=== PATIENT | female | born 1970 | race Caucasian/White ===

== ENCOUNTER → 2021-04-03 13:00 | Outpatient (BNVA) | payer OTHER, SELFPAY | PROVIDERS: PCP Internal Medicine; Visit Provider Nurse Practitioner Family | DX: M53.3 Sacrococcygeal disorders, not elsewhere classified (principal); M47.816 Spondylosis without myelopathy or radiculopathy, lumbar region | CPT/HCPCS: 99202 ==

== ENCOUNTER 2022-05-21 17:43 | Emergency (ER) | payer OTHER, SELFPAY ==
--- NOTE | ~2022-05-21 | XR_ITS ---
EXAMINATION: RIGHT KNEE, AP PELVIS AND RIGHT HIP AND CHEST. CLINICAL INFORMATION: Status post fall with pain to right knee. COMPARISON: None TECHNIQUE: Right knee 4 views. AP pelvis and right hip 2 views. Chest 2 views. FINDINGS: Right knee: There is mild loss of medial and patellofemoral compartment joint space. No visible acute fracture, dislocation or subluxation seen. There is mild superior patellar spurring. No abnormal suprapatellar joint effusion seen. AP pelvis and right hip: There is severe loss of right hip joint space and mild loss of left hip joint space with periarticular spurring. No visible acute fracture or dislocation seen. No lytic or sclerotic process seen. CHEST: The lungs are well-expanded and clear. The heart size and pulmonary vascularity is normal. No gross bony abnormalities seen. XR/XR knee RT 4V IMPRESSION: 1. Mild degenerative changes medial and patellofemoral compartment right knee. No visible acute fracture or dislocation seen. 2. Severe degenerative changes right hip joint with periarticular spurring. No visible acute fracture or dislocation seen. 3. Unremarkable chest exam.
--- NOTE | ~2022-05-21 | XR_ITS ---
EXAMINATION: RIGHT KNEE, AP PELVIS AND RIGHT HIP AND CHEST. CLINICAL INFORMATION: Status post fall with pain to right knee. COMPARISON: None TECHNIQUE: Right knee 4 views. AP pelvis and right hip 2 views. Chest 2 views. FINDINGS: Right knee: There is mild loss of medial and patellofemoral compartment joint space. No visible acute fracture, dislocation or subluxation seen. There is mild superior patellar spurring. No abnormal suprapatellar joint effusion seen. AP pelvis and right hip: There is severe loss of right hip joint space and mild loss of left hip joint space with periarticular spurring. No visible acute fracture or dislocation seen. No lytic or sclerotic process seen. CHEST: The lungs are well-expanded and clear. The heart size and pulmonary vascularity is normal. No gross bony abnormalities seen. XR/XR chest 2V IMPRESSION: 1. Mild degenerative changes medial and patellofemoral compartment right knee. No visible acute fracture or dislocation seen. 2. Severe degenerative changes right hip joint with periarticular spurring. No visible acute fracture or dislocation seen. 3. Unremarkable chest exam.
--- NOTE | ~2022-05-21 | US_ITS ---
EXAMINATION: US VENOUS ULTRASOUND WITH DOPPLER LOWER EXTREMITY, RIGHT CLINICAL INFORMATION: Right leg pain. COMPARISON: None TECHNIQUE: Ultrasound of the deep veins is performed from the hip to the calf with compression sonography and color and pulse Doppler assessment. Spectral analysis with color-flow imaging is performed. FINDINGS: There is normal venous compression and respiratory variation and augmented flow. The visualized common femoral vein, superficial femoral vein, profunda femoral vein, popliteal vein, and the trifurcation region shows no evidence of deep venous thrombosis. There is no significant popliteal fossa cyst. If the patient's symptoms persist, followup ultrasound in 5 days 7 days might be of value to exclude proximal propagation from a non-visualized calf vein. US/US venous duplex LE RT IMPRESSION: No DVT demonstrated in the right lower extremity.
--- NOTE | ~2022-05-21 | XR_ITS ---
EXAMINATION: RIGHT KNEE, AP PELVIS AND RIGHT HIP AND CHEST. CLINICAL INFORMATION: Status post fall with pain to right knee. COMPARISON: None TECHNIQUE: Right knee 4 views. AP pelvis and right hip 2 views. Chest 2 views. FINDINGS: Right knee: There is mild loss of medial and patellofemoral compartment joint space. No visible acute fracture, dislocation or subluxation seen. There is mild superior patellar spurring. No abnormal suprapatellar joint effusion seen. AP pelvis and right hip: There is severe loss of right hip joint space and mild loss of left hip joint space with periarticular spurring. No visible acute fracture or dislocation seen. No lytic or sclerotic process seen. CHEST: The lungs are well-expanded and clear. The heart size and pulmonary vascularity is normal. No gross bony abnormalities seen. XR/XR hip RT w PEL1V IMPRESSION: 1. Mild degenerative changes medial and patellofemoral compartment right knee. No visible acute fracture or dislocation seen. 2. Severe degenerative changes right hip joint with periarticular spurring. No visible acute fracture or dislocation seen. 3. Unremarkable chest exam.
[2022-05-21 17:45] VITALS: BP 121/79; PULSE 114; RESP 18; TEMP 36.1; O2SAT 100; BMI 40.1
--- NOTE | 2022-05-21 17:46 | ED.CHESTPAIN ---
HPI - Chest Pain General Chief Complaint: Chest Pain Stated Complaint: chest pain sob,right knee and hip pain Time Seen by Provider: 05/21/22 19:26 Related Data Home Medications Medication Instructions Recorded Confirmed acetaminophen 500 mg tablet 1,000 mg PO Q6H PRN 04/03/21 04/03/21 (Tylenol Extra Strength) ibuprofen 600 mg tablet 600 mg PO Q8H PRN 04/03/21 04/03/21 Previous Rx's Medication Instructions Recorded cyclobenzaprine 10 mg tablet 10 mg PO TID PRN muscle spasm #20 05/21/22 tabs ibuprofen 800 mg tablet 800 mg PO TID PRN pain #30 tabs 05/21/22 Allergies Allergy/AdvReac Type Severity Reaction Status Date / Time pineapple [PINEAPPLE] Allergy Unknown ITCH IN Verified 04/03/21 13:16 THROAT,COUGHING PMFSH Social History Social History Alcohol intake: current Alcohol intake frequency: holidays/special occasions only Smoked in Last 30 Days: Yes Use of substances other than those prescribed or required for medical reasons: Yes Substance Use Type: Marijuana Substance Use Frequency: Socially Advance Directives: No Advance Directives Information Provided: No Physical Exam Vital Signs: Vital Signs: Last Vital Signs Temp 96.9 F 05/21/22 17:45 Pulse 76 05/21/22 21:13 Resp 18 05/21/22 21:13 BP 118/80 05/21/22 21:13 Pulse Ox 96 05/21/22 21:13 O2 Del Method 05/21/22 21:13 BMI result Body Mass Index 40.1 Course Course Course Narrative: RME-17:47PM 51yoF c PMHx of asthma and COVID presenting to the ED c c/o of mid sternal sharp CP that will occur about her sleep last night. She also reports associated Dizziness, coughing c SOB going up stairs. Also reports a separate complaint approximately 2 weeks ago she was getting up out of her bed and she has a history of chronic back pain and her right leg gave out when she was getting up from the bed and she injured her right knee and now the pain is radiating to her right hip. She denies head injury loss of consciousness or prolonged down time or any symptoms prior to the fall. She denies being on any blood thinners. She denies any drug usage, being on any control, recent travel or sick contacts that she is aware of, headaches, leg swelling, calf tenderness, rashes or any other symptoms complaints or concerns at this time. Plan: Patient will be sent to the waiting room to be evaluated in the ED. Will obtain labs, EKG, chest x-ray, right hip and knee x-ray. Medical Decision Making Lab Data 05/21/22 18:01 05/21/22 18:01 Labs: Lab Results 05/21/22 05/21/22 05/21/22 Range/Units 18:01 18:01 18:01 WBC 9.0 (4.8-10.8) X10*3/uL RBC 5.14 (4.20-5.50) X10*6/uL Hgb 12.8 (12.0-16.0) g/dl Hct 40.4 (37.0-47.0) % MCV 78.6 L (80.0-98.0) fL MCH 24.9 L (27.0-33.0) pg MCHC 31.7 (31.0-35.0) g/dl RDW 14.5 (11.0-16.0) % Plt Count 360 (160-400) X10*3/uL MPV 9.3 L (9.4-12.3) fL Immature Gran % (Auto) 0.3 (0.0-0.4) % Neut % (Auto) 51.7 (45-73) % Lymph % (Auto) 40.6 H (20-40) % [place] % (Auto) 5.1 (2-11) % Eos % (Auto) 1.7 (0-4) % Baso % (Auto) 0.6 (0-2) % Lymph # (Auto) 3.7 (1.2-4.9) X10*3/uL [place] # (Auto) 0.5 (0.1-1.2) X10*3/uL Eos # (Auto) 0.2 (0.0-0.4) X10*3/uL Baso # (Auto) 0.1 (0.0-0.2) X10*3/uL Abs Immat Gran (auto) 0.03 (0.00-0.03) X10*3/uL Absolute Neuts (auto) 4.7 (2.0-8.3) x10*3/uL Absolute Nucleated RBC 0.000 (0.0-0.012) X10*3/uL Nucleated RBC % (auto) 0.0 (0.0-0.2) /100WBC PT 11.0 (10.0-13.1) SEC INR 1.0 (0.9-1.1) D-Dimer High Sensitivty 218 NG/ML Sodium 141 (135-145) mmol/L Potassium 3.9 (3.3-5.1) mmol/L Chloride 106 (96-108) mmol/L Carbon Dioxide 25 (22-29) mmol/L Anion Gap 14 (12-20) BUN 15 (9-16) mg/dL Creatinine 0.95 (0.5-1.4) mg/dL Estim Creat Clear Calc 90.2 Estimated GFR > 60 Random Glucose 97 (60-115) mg/dL Calcium 9.6 (8.4-10.2) mg/dL Magnesium 1.7 (1.6-2.6) mg/dL Total Bilirubin 0.4 (0.0-1.0) mg/dL AST 22 (5-31) U/L ALT 21 (0-31) U/L Alkaline Phosphatase 128 H (39-117) U/L Troponin I High Sens (<3.5-17.0) ng/L B-Natriuretic Peptide (<100) pg/mL Total Protein 7.2 (6.5-8.0) g/dL Albumin 4.3 (3.5-5.0) g/dL Lipase 32 (8-78) U/L Influenza Type A (PCR) (Negative) Influenza Type B (PCR) (Negative) RSV RNA Qual (PCR) (Negative) SARS-CoV-2 RNA (RT-PCR) (Negative) 05/21/22 05/21/22 05/21/22 Range/Units 18:01 18:01 18:01 WBC (4.8-10.8) X10*3/uL RBC (4.20-5.50) X10*6/uL Hgb (12.0-16.0) g/dl Hct (37.0-47.0) % MCV (80.0-98.0) fL MCH (27.0-33.0) pg MCHC (31.0-35.0) g/dl RDW (11.0-16.0) % Plt Count (160-400) X10*3/uL MPV (9.4-12.3) fL Immature Gran % (Auto) (0.0-0.4) % Neut % (Auto) (45-73) % Lymph % (Auto) (20-40) % [place] % (Auto) (2-11) % Eos % (Auto) (0-4) % Baso % (Auto) (0-2) % Lymph # (Auto) (1.2-4.9) X10*3/uL [place] # (Auto) (0.1-1.2) X10*3/uL Eos # (Auto) (0.0-0.4) X10*3/uL Baso # (Auto) (0.0-0.2) X10*3/uL Abs Immat Gran (auto) (0.00-0.03) X10*3/uL Absolute Neuts (auto) (2.0-8.3) x10*3/uL Absolute Nucleated RBC (0.0-0.012) X10*3/uL Nucleated RBC % (auto) (0.0-0.2) /100WBC PT (10.0-13.1) SEC INR (0.9-1.1) D-Dimer High Sensitivty NG/ML Sodium (135-145) mmol/L Potassium (3.3-5.1) mmol/L Chloride (96-108) mmol/L Carbon Dioxide (22-29) mmol/L Anion Gap (12-20) BUN (9-16) mg/dL Creatinine (0.5-1.4) mg/dL Estim Creat Clear Calc Estimated GFR Random Glucose (60-115) mg/dL Calcium (8.4-10.2) mg/dL Magnesium (1.6-2.6) mg/dL Total Bilirubin (0.0-1.0) mg/dL AST (5-31) U/L ALT (0-31) U/L Alkaline Phosphatase (39-117) U/L Troponin I High Sens < 3.5 (<3.5-17.0) ng/L B-Natriuretic Peptide < 10 (<100) pg/mL Total Protein (6.5-8.0) g/dL Albumin (3.5-5.0) g/dL Lipase (8-78) U/L Influenza Type A (PCR) NEGATIVE (Negative) Influenza Type B (PCR) NEGATIVE (Negative) RSV RNA Qual (PCR) NEGATIVE (Negative) SARS-CoV-2 RNA (RT-PCR) NEGATIVE (Negative) Discharge Plan Discharge Clinical Impression: Atypical chest pain, Osteoarthritis Patient Disposition: Home, Self-Care Instructions: Osteoarthritis (ED), Chest Wall Pain (ED) Additional Instructions: Follow-up with your primary care physician as already scheduled. For physical therapy you can call [facility]. [phone] Prescriptions: New ibuprofen 800 mg tablet 800 mg PO TID PRN (Reason: pain) Qty: 30 0RF cyclobenzaprine 10 mg tablet 10 mg PO TID PRN (Reason: muscle spasm) Qty: 20 0RF No Action acetaminophen [Tylenol Extra Strength] 500 mg tablet 1,000 mg PO Q6H PRN ibuprofen 600 mg tablet 600 mg PO Q8H PRN Stand Alone Forms: Work/School Release Interventions: ED Discharge Assessment Last Done: 05/21/22 21:18 Discharge Date/Time: 05/21/22 21:22
--- NOTE | 2022-05-21 17:47 | ECG_ITS ---
Test Reason : CHEST PAIN Blood Pressure : / mmHG Vent. Rate : 107 BPM Atrial Rate : 107 BPM P-R Int : 156 ms QRS Dur : 082 ms QT Int : 350 ms P-R-T Axes : 059 019 061 degrees QTc Int : 467 ms Sinus tachycardia Possible Left atrial enlargement Borderline ECG When compared with ECG of 17-JUL-2014 20:37, No significant change was found Referred By: Jen Clark Electronically Signed By:RADHA MULTANI
--- NOTE | 2022-05-21 18:02 | MHC.EDTECH ---
PATIENT EKG DONE ,ALSO BLOOD DRAWN AND RSV COVID SWAB DONE AND SEND TO LAB.
[2022-05-21 18:10] LABS: MANUAL DIFF FLAG NO
[2022-05-21 18:30] LABS: Alanine Aminotransferase 21 U/L (0-31); Albumin Level 4.3 g/dL (3.5-5.0); Alkaline Phosphatase 128 U/L (39-117); Anion Gap 14 (12-20); Aspartate Amino Transferase 22 U/L (5-31); Bilirubin Total 0.4 mg/dL (0.0-1.0); Blood Urea Nitrogen 15 mg/dL (9-16); Calcium 9.6 mg/dL (8.4-10.2); Carbon Dioxide 25 mmol/L (22-29); Chloride 106 mmol/L (96-108); Creatinine Clr Calc Pharmacy 90.2; Estimated Glomerular Filt Rate > 60; Glucose Random 97 mg/dL (60-115); Lipase 32 U/L (8-78); Magnesium 1.7 mg/dL (1.6-2.6); Potassium 3.9 mmol/L (3.3-5.1); Sodium 141 mmol/L (135-145); Total Protein 7.2 g/dL (6.5-8.0)
[2022-05-21 18:33] LABS: Basophils Absolute Auto 0.1 X10*3/uL (0.0-0.2); Basophils Percent Auto 0.6 % (0-2); Eosinophils Absolute Auto 0.2 X10*3/uL (0.0-0.4); Eosinophils Percent Auto 1.7 % (0-4); Hematocrit 40.4 % (37.0-47.0); Hemoglobin 12.8 g/dl (12.0-16.0); Imm Gran Abs Auto 0.03 X10*3/uL (0.00-0.03); Imm Gran Pct Auto 0.3 % (0.0-0.4); Lymphocytes Absolute Auto 3.7 X10*3/uL (1.2-4.9); Lymphocytes Percent Auto 40.6 % (20-40); Mean Corpuscular HGB Conc 31.7 g/dl (31.0-35.0); Mean Corpuscular Hemoglobin 24.9 pg (27.0-33.0); Mean Corpuscular Volume 78.6 fL (80.0-98.0); Mean Platelet Volume 9.3 fL (9.4-12.3); Monocytes Absolute Auto 0.5 X10*3/uL (0.1-1.2); Monocytes Percent Auto 5.1 % (2-11); Neutrophils Absolute Auto 4.7 x10*3/uL (2.0-8.3); Neutrophils Percent Auto 51.7 % (45-73); Platelet Count 360 X10*3/uL (160-400); Red Blood Count 5.14 X10*6/uL (4.20-5.50); Red Cell Distribution Width 14.5 % (11.0-16.0)
[2022-05-21 18:35] LABS: B Type Natriuretic Peptide < 10 pg/mL (<100)
[2022-05-21 18:38] LABS: Troponin-I High Sensitivity < 3.5 ng/L (<3.5-17.0)
[2022-05-21 18:51] LABS: Influenza A PCR NEGATIVE (Negative); Influenza B PCR NEGATIVE (Negative); Resp Syncy Virus RNA Qual PCR NEGATIVE (Negative); SARS COV2 PCR INHOUSE NEGATIVE (Negative)
--- NOTE | 2022-05-21 19:48 | ED_ITS ---
HPI - Chest Pain General Chief Complaint: Chest Pain Stated Complaint: chest pain sob,right knee and hip pain Time Seen by Provider: 05/21/22 19:26 Source: patient Limitations: no limitations History of Present Illness HPI narrative: Patient presents with approximately 2 weeks worth of progressive intermittent chest pain. She describes it as sharp. It lasts for about 5 minutes and is accompanied with dyspnea. She states she has had this in the past and has been worked up but does not recall what the workup was. It has been worked up in [place] and at [facility]. It all started after a fall which happened 2 weeks ago. She complains of increased right-sided pain especially right knee and right hip. It radiates fro m her back. She has had this before. She has had neck is in the past requiring surgery on her low back many years ago. Some swelling in her right leg as well. She denies fevers or chills. No cough. No nausea vomiting. Related Data Home Medications Medication Instructions Recorded Confirmed acetaminophen 500 mg tablet 1,000 mg PO Q6H PRN 04/03/21 04/03/21 (Tylenol Extra Strength) ibuprofen 600 mg tablet 600 mg PO Q8H PRN 04/03/21 04/03/21 Previous Rx's Medication Instructions Recorded cyclobenzaprine 10 mg tablet 10 mg PO TID PRN muscle spasm #20 05/21/22 tabs ibuprofen 800 mg tablet 800 mg PO TID PRN pain #30 tabs 05/21/22 Allergies Allergy/AdvReac Type Severity Reaction Status Date / Time pineapple [PINEAPPLE] Allergy Unknown ITCH IN Verified 04/03/21 13:16 THROAT,COUGHING Review of Systems Constitutional: Comments: No fevers or chills Cardiovascular: Comments: Chest pain is described Respiratory: Comments: Dyspnea when she has chest pain, but no cough or sputum Gastrointestinal: Comments: No GI symptoms Genitourinary: Comments: . Musculoskeletal: Comments: Right-sided hip knee and posterior leg pain with edema as described Integumentary/Breasts: Comments: No rash or change in color. No increased warmth Neurologic: Comments: No focal neuro deficit [facility] Social History Social History Advance Directives: No Advance Directives Information Provided: No Physical Exam Vital Signs: Vital Signs: Last Vital Signs Temp 96.9 F 05/21/22 17:45 Pulse 114 H 05/21/22 17:45 Resp 18 05/21/22 17:45 BP 121/79 05/21/22 17:45 Pulse Ox 100 05/21/22 17:45 O2 Del Method 05/21/22 17:45 BMI result Body Mass Index 40.1 Const: Other: Awake and alert. No acute distress Chest: Other: Chest wall nontender Resp: Other: Clear and equal bilaterally without wheezes rales or rhonchi Cardio: Other: Regular rate and rhythm without murmurs rubs or gallops GI: Other: Soft nontender nondistended Back/Spine/Pelvis: Other: No midline TL or S spine tenderness. Some right-sided paraspinous muscle tenderness without crepitus or deformity. There are 3 low lumbar spine surgical scars consistent with her history of prior surgery. Skin: Other: Warm pink and dry without rash or increased warmth Neuro: Other: Sensation intact bilaterally. No focal neuro deficit Extrem: Other: Right leg with some swelling and effusion of the right knee. Mild lateral po sterior calf tenderness to palpation. Mild pedal edema. Knee joint itself is stable. Right hip without crepitus deformity. No rotation or shortening. Capillary refill normal Medical Decision Making Medical Decision Making MDM Narrative: Patient with intermittent chest pain and dyspnea post fall 2 weeks ago. Thromboembolic cause is a possibility. Cardiac cause Musculoskeletal etiology. Rule out hip fracture knee fracture Rule out deep vein thrombosis. Given prior history of multiple cardiac workups and what sounds like thromboembolic workup, I will hold off on a CT scan of the chest for now. In the meantime I will add on a D-dimer. If it is negative I will hold off on further thoracic imaging. In the meantime will also order ultrasound of the right leg to rule out DVT. 20:03. CBC is normal. Chemistries are normal. Troponin is normal. Viral panel negative. Chest x-ray is normal. X-ray of right hip and right knee by Radiology interpretation show extensive de generative changes but no acute fracture 21:03. Workup in the emergency department is now reassuring. Ultrasound shows no evidence of DVT. D-dimer is negative. Given this thromboembolic cause of symptoms is negligible. Will discharge home with follow-up RD arranged with her PCP on Thursday. Lab Data 05/21/22 18:01 05/21/22 18:01 Labs: Lab Results 05/21/22 05/21/2223 Range/Units 18:01 18:01 18:01 WBC 9.0 (4.8-10.8) X10*3/uL RBC 5.14 (4.20-5.50) X10*6/uL Hgb 12.8 (12.0-16.0) g/dl Hct 40.4 (37.0-47.0) % MCV 78.6 L (80.0-98.0) fL MCH 24.9 L (27.0-33.0) pg MCHC 31.7 (31.0-35.0) g/dl RDW 14.5 (11.0-16.0) % Plt Count 360 (160-400) X10*3/uL MPV 9.3 L (9.4-12.3) fL Immature Gran % (Auto) 0.3 (0.0-0.4) % Neut % (Auto) 51.7 (45-73) % Lymph % (Auto) 40.6 H (20-40) % [place] % (Auto) 5.1 (2-11) % Eos % (Auto) 1.7 (0-4) % Baso % (Auto) 0.6 (0-2) % Lymph # (Auto) 3.7 (1.2-4.9) X10*3/uL [place] # (Auto) 0.5 (0.1-1.2) X10*3/uL Eos # (Auto) 0.2 (0.0-0.4) X10*3/uL Baso # (Auto) 0.1 (0.0-0.2) X10*3/uL Abs Immat Gran (auto) 0.03 (0.00-0.03) X10*3/uL Absolute Neuts (auto) 4.7 (2.0-8.3) x10*3/uL Absolute Nucleated RBC 0.000 (0.0-0.012) X10*3/uL Nucleated RBC % (auto) 0.0 (0.0-0.2) /100WBC PT 11.0 (10.0-13.1) SEC INR 1.0 (0.9-1.1) D-Dimer High Sensitivty 218 NG/ML Sodium 141 (135-145) mmol/L Potassium 3.9 (3.3-5.1) mmol/L Chloride 106 (96-108) mmol/L Carbon Dioxide 25 (22-29) mmol/L Anion Gap 14 (12-20) BUN 15 (9-16) mg/dL Creatinine 0.95 (0.5-1.4) mg/dL Estim Creat Clear Calc 90.2 Estimated GFR > 60 Random Glucose 97 (60-115) mg/dL Calcium 9.6 (8.4-10.2) mg/dL Magnesium 1.7 (1.6-2.6) mg/dL Total Bilirubin 0.4 (0.0-1.0) mg/dL AST 22 (5-31) U/L ALT 21 (0-31) U/L Alkaline Phosphatase 128 H (39-117) U/L Troponin I High Sens (<3.5-17.0) ng/L B-Natriuretic Peptide (<100) pg/mL Total Protein 7.2 (6.5-8.0) g/dL Albumin 4.3 (3.5-5.0) g/dL Lipase 32 (8-78) U/L Influenza Type A (PCR) (Negative) Influenza Type B (PCR) (Negative) RSV RNA Qual (PCR) (Negative) SARS-CoV-2 RNA (RT-PCR) (Negative) 05/21/22 05/21/22 05/21/22 Range/Units 18:01 18:01 18:01 WBC (4.8-10.8) X10*3/uL RBC (4.20-5.50) X10*6/uL Hgb (12.0-16.0) g/dl Hct (37.0-47.0) % MCV (80.0-98.0) fL MCH (27.0-33.0) pg MCHC (31.0-35.0) g/dl RDW (11.0-16.0) % Plt Count (160-400) X10*3/uL MPV (9.4-12.3) fL Immature Gran % (Auto) (0.0-0.4) % Neut % (Auto) (45-73) % Lymph % (Auto) (20-40) % [place] % (Auto) (2-11) % Eos % (Auto) (0-4) % Baso % (Auto) (0-2) % Lymph # (Auto) (1.2-4.9) X10*3/uL [place] # (Auto) (0.1-1.2) X10*3/uL Eos # (Auto) (0.0-0.4) X10*3/uL Baso # (Auto) (0.0-0.2) X10*3/uL Abs Immat Gran (auto) (0.00-0.03) X10*3/uL Absolute Neuts (auto) (2.0-8.3) x10*3/uL Absolute Nucleated RBC (0.0-0.012) X10*3/uL Nucleated RBC % (auto) (0.0-0.2) /100WBC PT (10.0-13.1) SEC INR (0.9-1.1) D-Dimer High Sensitivty NG/ML Sodium (135-145) mmol/L Potassium (3.3-5.1) mmol/L Chloride (96-108) mmol/L Carbon Dioxide (22-29) mmol/L Anion Gap (12-20) BUN (9-16) mg/dL Creatinine (0.5-1.4) mg/dL Estim Creat Clear Calc Estimated GFR Random Glucose (60-115) mg/dL Calcium (8.4-10.2) mg/dL Magnesium (1.6-2.6) mg/dL Total Bilirubin (0.0-1.0) mg/dL AST (5-31) U/L ALT (0-31) U/L Alkaline Phosphatase (39-117) U/L Troponin I High Sens < 3.5 (<3.5-17.0) ng/L B-Natriuretic Peptide < 10 (<100) pg/mL Total Protein (6.5-8.0) g/dL Albumin (3.5-5.0) g/dL Lipase (8-78) U/L Influenza Type A (PCR) NEGATIVE (Negative) Influenza Type B (PCR) NEGATIVE (Negative) RSV RNA Qual (PCR) NEGATIVE (Negative) SARS-CoV-2 RNA (RT-PCR) NEGATIVE (Negative) Discharge Plan Discharge Clinical Impression: Atypical chest pain, Osteoarthritis Patient Disposition: Home, Self-Care Instructions: Osteoarthritis (ED), Chest Wall Pain (ED) Additional Instructions: Follow-up with your primary care physician as already scheduled. For physical therapy you can call [facility]. [phone] Prescriptions: New ibuprofen 800 mg tablet 800 mg PO TID PRN (Reason: pain) Qty: 30 0RF cyclobenzaprine 10 mg tablet 10 mg PO TID PRN (Reason: muscle spasm) Qty: 20 0RF No Action acetaminophen [Tylenol Extra Strength] 500 mg tablet 1,000 mg PO Q6H PRN ibuprofen 600 mg tablet 600 mg PO Q8H PRN
--- NOTE | 2022-05-21 19:52 | PC.NURSE ---
This scientific technical writer assumed care of this PT at this time.
[2022-05-21 20:21] LABS: D Dimer High Sensitivity 218 NG/ML
[2022-05-21 21:13] VITALS: BP 118/80; PULSE 76; RESP 18; O2SAT 96
== END 2022-05-21 21:22 | disposition home or self-care (01) ==
PROVIDERS: Physician Assistant Medical; Emergency Provider Emergency Medicine
DX: R07.89 Other chest pain (principal); M16.11 Unilateral primary osteoarthritis, right hip; M17.11 Unilateral primary osteoarthritis, right knee; R06.02 Shortness of breath; M79.604 Pain in right leg; R60.0 Localized edema; Z20.822 Contact with and (suspected) exposure to COVID-19; Z20.828 Contact with and (suspected) exposure to other viral communicable diseases
CPT/HCPCS: 0241U; 36415; 71046; 73502; 73564; 80053; 83690; 83735; 83880; 84484; 85025; 85379; 85610; 93005; 93971; 99284; 99285

== ENCOUNTER 2025-01-13 15:38 | Emergency (ER) | payer OTHER, SELFPAY ==
--- NOTE | ~2025-01-13 | CT_ITS ---
CLINICAL HISTORY: abscess vs seroma on dry scan CT right hip and pelvis Comparison: CT/SR - CT ABDOMEN PELVIS WO IV CON - 01/13/25 20:54 EDT Technique: CT of the right pelvis was performed after the administration of intravenous contrast. Multiplanar reformatted images were generated. Findings: Patient is status post right total hip arthroplasty. There is a peripherally enhancing fluid collection extending to the anterior thigh. Largest loculation measures approximately 34 mm, superficial to the quadriceps insertion. Pelvis is normal. There is normal vascular enhancement. IMPRESSION: Loculated right lower extremity peripherally enhancing fluid collection extending toward the postoperative joint. This may represent hematoma, seroma, or less likely abscess. Minimal soft tissue fat stranding is present adjacent to the collection. No evidence of pyomyositis in the adjacent quadriceps. This document has been electronically signed by: Jerrod John III, MD PHD on 01/14/2025 04:20:54
--- NOTE | ~2025-01-13 | CT_ITS ---
CLINICAL HISTORY: right flank hip pain --- Additional Notes or Special Instructions: s p post right hip replacement CT abdomen and pelvis without contrast Comparison: None provided Findings: Lung bases clear. No acute bony abnormality. L4-5 posterior fusion hardware noted. Left hip degenerative change. Right hip prosthesis grossly unremarkable. 4.2 cm subcutaneous fluid collection anterior to right hip. Question seroma, abscess not excludable. Liver and spleen within normal limits. Pancreas and adrenal glands unremarkable. Gallbladder not identified. No bilateral renal stone or hydronephrosis. No focal renal abnormality or ureteral dilation. No evidence for aortic aneurysm. No free fluid or adenopathy in the pelvis. No diverticulitis. Appendix unremarkable. Hysterectomy. No adnexal abnormality. Impression: Subcutaneous fluid collection anterior to right hip Question seroma versus abscess No acute process in the abdomen This document has been electronically signed by: Isaias Rodrigues MD on 01/13/2025 22:17:44
--- NOTE | ~2025-01-13 | US_ITS ---
EXAMINATION: US TRIPLEX LOWER EXTREMITY, RIGHT CLINICAL INFORMATION: Right lower extremity pain COMPARISON: None available. TECHNIQUE: Color-flow triplex imaging with spectral analysis and compression Doppler were performed on the right lower extremity. FINDINGS: Respiratory variation, normal compression and augmented flow are noted throughout the right lower extremity. The visualized common femoral vein, superficial femoral vein, profunda femoral vein, popliteal vein and midcalf peroneal and posterior tibial venous segments show no evidence of deep venous thrombosis. US/US venous duplex LE RT IMPRESSION: No evidence of deep venous thrombosis involving the right lower extremity. Electronically signed by: Amadou Cardoza MD 01/13/2025 04:57 PM EDT
--- NOTE | 2025-01-13 15:56 | ED_ITS ---
HPI - General Adult General Chief complaint: General Medical Stated complaint: 5 days pain abd pain, hx hip replacement Time Seen by Provider: 01/13/25 19:23 Source: patient Limitations: no limitations History of Present Illness ED Provider: Eli Rao PA-C HPI narrative: 54-year-old female with a history of obesity, who is now status post right-sided hip replacement in October by [facility], presents with right hip pain x5 days. Patient is having discomfort over right mid to lower flank/abdomen, to the right hip with radiation to the low back and down right lower extremity at times. Pain worse with movement. Denies new activity, trauma, that could have precipitated her symptoms. Patient states she has been attending physical therapy, there has been no changes to her therapy sessions. Denies nausea vomiting, dysuria hematuria history of kidney stones or fever. Denies weakness of lower extremity, paresthesia, urinary retention or bowel incontinence. Related Data Home Medications ?Medication ?Instructions ?Recorded ?Confirmed acetaminophen 500 mg tablet 1,000 mg PO Q6H PRN 04/03/21 (Tylenol Extra Strength) ibuprofen 600 mg tablet 600 mg PO Q8H PRN 04/03/21 1 06/04/20 Previous Rx's ?Medication ?Instructions ?Recorded cyclobenzaprine 10 mg tablet 10 mg PO TID PRN muscle s pasm #20 05/21/22 tabs ibuprofen 800 mg tablet 800 mg PO TID PRN pain #30 t abs 05/21/22 Allergies Allergy/AdvReac Type Severity Reaction Status Date / Time pineapple (PINEAPPLE) Allergy Unknown ITCH IN Verified 01/13/25 16:00 THROAT,COUGHING Review of Systems 2 Review of Systems: Yes all other systems are reviewed and are negative Constitutional: Constitutional: Denies fatigue and Denies fever(s) Cardiovascular: Cardiovascular: Denies chest pain and Denies dyspnea Respiratory: Respiratory: Denies dyspnea Gastrointestinal: Gastrointestinal: Reports abdominal pain and Denies vomiting Genitourinary: Genitourinary: Denies hematuria, Denies dysuria and Reports flank pain Musculoskeletal: Musculoskeletal: Reports back pain, Denies muscle weakness, Denies numbness, Reports radiating pain into limb and Denies tingling Neurologic: Denies numbness and Denies tingling Endocrine: Endocrine: Denies fatigue PMF Past Medical History Attestation statement: The following information was validated with the patient. Social History Social History Alcohol intake: former Smoked in Last 30 Days: No Use of substances other than those prescribed or required for medical reasons: Yes Substance Use Type: Marijuana Substance Use Frequency: Occasionally Advance Directives: No Advance Directives Information Provided: No Patient : No Physical Exam ED Vital Signs: Vital Signs - 24 hr 01/13/25 15:57 01/13/25 23:14 01/14/25 03:19 Temperature 98.2 F 96.3 F L 98.2 F Pulse Rate 92 71 70 Respiratory Rate 18 18 20 Blood Pressure 113/58 L 125/80 137/82 Pulse Oximetry 95 98 98 Oxygen Delivery Method Room Air Room Air Room Air 01/14/25 04:24 Temperature 98.2 F Pulse Rate 70 Respiratory Rate 20 Blood Pressure 137/82 Pulse Oximetry 98 Oxygen Delivery Method Room Air BMI result Body Mass Index 33.7 Const Other: Alert Orientation/consciousness: patient oriented x3 Resp Effort & Inspection: normal respiratory effort Cardio Other: Normal peripheral perfusion GI Other: Soft, nontender, obese abdomen no guarding General: Yes no CVA tenderness Back/Spine/Pelvis Back: no CVA tenderness Skin Other: Warm dry no rash Neuro Other: Ambulates with a antalgic gait appears uncomfortable with movement General: patient oriented x3, no focal motor deficits and CN's II-XI intact bilaterally Extrem Other: The surgical site appears clean, dry, no erythema swelling or purulence from the site Psych Other: Cooperative Course Course Course Narrative: RME, this is a rapid medical exam performed by Scott Darden please refer to primary provider for complete H&P- 54-year-old female presents for evaluation of right lower abdominal pain with nausea and vomiting. The pain started 5 days ago. Nausea and vomiting started today. She also reports right leg swelling and calf pain. She had a right hip replacement about 2 months ago. Plan for labs urinalysis and ultrasound of the right lower extremity Reevaluation(s) Reevaluation #1: There was concern for seroma versus abscess on dry scan, I will obtain a dedicated CT with contrast of the right hip, I have explained this scenario to the patient, radiology is taking an extremely long time today to read reports, the patient is becoming frustrated. She is still in pain, instead of opiate analgesia I offered a muscle relaxant, the patient is still declines, she states it we will just make her drowsy. We will order Tylenol. Reevaluation #2: The patient continues to express her dissatisfaction with the wait time, it has been relayed to the patient multiple times that we have no control over how long Radiology takes to read the studies, that they are experiencing high volume, in the I did have the medical secretary call to try and expedite her scan. Reevaluation #3: Patient is very angry and is leaving against medical advice, she states she will be filing a complaint about how poor her care was overnight. Myself, multiple nurses, have attempted to explain the scenario to the patient, in regard to radiology being behind on the scans, she is adamant about leaving. Medications Administered Discontinued Medications Generic Name Dose Route Start Last Admin Trade Name Yanely PRN Reason Stop Dose Admin Acetaminophen 975 mg 01/14/25 00:04 01/14/25 02:19 Acetaminophen 325 Mg Tablet PO 01/14/25 00:05 Not Given ONCE ONE Iohexol 85 ml 01/14/25 00:51 01/14/25 00:52 Iohexol 350 Mg/Ml 100 Ml Infus..Btl IV 01/14/25 00:52 85 ml ONCE ONE Administration Ketorolac Tromethamine 15 mg 01/13/25 20:30 01/13/25 20:48 Ketorolac Tromethamine 15 Mg/Ml Vial IM 01/13/25 20:31 15 mg ONCE ONE Administration Ondansetron HCl 4 mg 01/13/25 20:30 01/13/25 20:48 Ondansetron Odt 4 Mg Tab.Rapdis TRANSLINGU 01/13/25 20:31 4 mg ONCE ONE Administration Medical Decision Making Medical Decision Making MDM Narrative: 54-year-old female with a history of obesity, who is now status post right-sided hip replacement in October by [facility], presents with right hip pain x5 days. Patient is having discomfort over right mid to lower flank/abdomen, to the right hip with radiation to the low back and down right lower extremity at times. Pain worse with movement. Denies new activity, trauma, that could have precipitated her symptoms. Patient states she has been attending physical therapy, there has been no changes to her therapy sessions. Denies nausea vomiting, dysuria hematuria history of kidney stones or fever. Denies weakness of lower extremity, paresthesia, urinary retention or bowel incontinence. Problem: Right-sided hip replacement History: Per patient I have considered the following differential diagnoses: Postoperative complication, renal colic, UTI, pyelonephritis, lumbar radiculopathy, cauda equina Plan: Patient is having some degree of right-sided abdominal pain along with the hip pain. This could be referred pain. Given distribution I am considering renal colic, in addition to screening labs, the patient we will be providing a urine sample. Although she has no related symptoms, and no history of kidney stones. Also thought about pyelonephritis, again no symptoms, no active GI symptoms no fever and no CVA tenderness. The patient is having radicular symptoms, without red flag signs symptoms concerning for cord compression. It would be odd for her to have a postoperative complication, her procedure was in October, I will obtain CT abdomen and pelvis dry scan, this will assess the hip as well as the abdomen to rule out renal colic. Giving Toradol for the patient's discomfort, I offered opiate analgesia she declined. I have independently reviewed the following tests: Labs: No leukocytosis, not anemic, no electrolyte abnormality noted, viral panel negative Ultrasound right lower extremity: US/US venous duplex LE RT IMPRESSION: No evidence of deep venous thrombosis involving the right lower extremity. CT abdomen and pelvis:Findings: Lung bases clear. No acute bony abnormality. L4-5 posterior fusion hardware noted. Left hip degenerative change. Right hip prosthesis grossly unremarkable. 4.2 cm subcutaneous fluid collection anterior to right hip. Question seroma, abscess not excludable. Liver and spleen within normal limits. Pancreas and adrenal glands unremarkable. Gallbladder not identified. No bilateral renal stone or hydronephrosis. No focal renal abnormality or ureteral dilation. No evidence for aortic aneurysm. No free fluid or adenopathy in the pelvis. No diverticulitis. Appendix unremarkable. Hysterectomy. No adnexal abnormality. Impression: Subcutaneous fluid collection anterior to right hip Question seroma versus abscess No acute process in the abdomen This document has been electronically signed by: Iasias Rodrigues MD on 01/13/2025 22:17:44 CT right hip pelvis:CT right hip and pelvis Comparison: CT/SR - CT ABDOMEN PELVIS WO IV CON - 01/13/25 20:54 EDT Technique: CT of the right pelvis was performed after the administration of intravenous contrast. Multiplanar reformatted images were generated. Findings: Patient is status post right total hip arthroplasty. There is a peripherally enhancing fluid collection extending to the anterior thigh. Largest loculation measures approximately 34 mm, superficial to the quadriceps insertion. Pelvis is normal. There is normal vascular enhancement. IMPRESSION: Loculated right lower extremity peripherally enhancing fluid collection extending toward the postoperative joint. This may represent hematoma, seroma, or less likely abscess. Minimal soft tissue fat stranding is present adjacent to the collection. No evidence of pyomyositis in the adjacent quadriceps. Differential Diagnosis Differential Diagnoses: The differential diagnosis associated with the presentation includes See medical decision-making Admission/Observation Consideration of admission/observation: Escalation of care including admission/observation considered Not applicable Lab Data MDM Lab Attestation statement: I reviewed the patient's lab results. 01/13/25 16:07 01/13/25 16:07 Labs: Lab Results 01/13/25 01/13/25 Range/Units 16:07 20:38 WBC 8.1 (4.8-10.8) X10*3/uL RBC 4.93 (4.20-5.50) X10*6/uL Hgb 12.8 (12.0-16.0) g/dl Hct 38.9 (37.0-47.0) % MCV 78.9 L (80.0-98.0) fL MCH 26.0 L (27.0-33.0) pg MCHC 32.9 (31.0-35.0) g/dl RDW 13.6 (11.0-16.0) % Plt Count 310 (160-400) X10*3/uL MPV 9.2 L (9.4-12.3) fL Immature Gran % (Auto) 0.1 (0.0-0.4) % Neut % (Auto) 54.2 (45-73) % Lymph % (Auto) 38.5 (20-40) % [place] % (Auto) 4.2 (2-11) % Eos % (Auto) 2.6 (0-4) % Baso % (Auto) 0.4 (0-2) % Lymph # (Auto) 3.1 (1.2-4.9) X10*3/uL [place] # (Auto) 0.3 (0.1-1.2) X10*3/uL Eos # (Auto) 0.2 (0.0-0.4) X10*3/uL Baso # (Auto) 0.0 (0.0-0.2) X10*3/uL Abs Immat Gran (auto) 0.01 (0.00-0.03) X10*3/uL Absolute Neuts (auto) 4.4 (2.0-8.3) x10*3/uL Absolute Nucleated RBC 0.000 (0.0-0.012) X10*3/uL Nucleated RBC % (auto) 0.0 (0.0-0.2) /100WBC Sodium 144 (135-145) mmol/L Potassium 4.1 (3.3-5.1) mmol/L Chloride 114 H (96-108) mmol/L Carbon Dioxide 24 (22-29) mmol/L Anion Gap 10 L (12-20) BUN 13 (9-16) mg/dL Creatinine 0.89 (0.5-1.4) mg/dL Estim Creat Clear Calc 84.7 Estimated GFR > 60 Random Glucose 99 (60-115) mg/dL Calcium 9.0 D (8.4-10.2) mg/dL Total Bilirubin 0.3 (0.0-1.0) mg/dL AST 29 (5-31) U/L ALT 29 (0-31) U/L Alkaline Phosphatase 142 H (39-117) U/L Total Protein 6.9 (6.5-8.0) g/dL Albumin 4.1 (3.5-5.0) g/dL Lipase 37 (8-78) U/L Urine Color Yellow Urine Appearance Clear Urine pH 5.5 (5.0-9.0) Ur Specific [place] >= 1.030 H (1.005-1.025) Urine Protein Negative (Neg-Trace) mg/dL Urine Glucose (UA) Negative (Negative) mg/dL Urine Ketones Negative (Negative) mg/dL Urine Blood Negative (Negative) Urine Nitrite Negative (Negative) Ur Leukocyte Esterase Negative (Negative) Urine RBC 0-2 (0-2) /HPF Urine WBC 0-5 (0-5) /HPF Ur Squamous Epith Cells 3-5 (0-2) /HPF Urine Bacteria None Seen (None Seen) Hyaline Casts 0-2 (0-2) /LPF COVID-19 (CINTHIA) Negative (Negative) COVID-19 Clin Com See Note Influenza Type A (RAPHAEL) Negative (Negative) Influenza Type B (RAPHAEL) Negative (Negative) Influenza A & B Note See Note Radiology Impression Discussion of test interpretation with radiology: I have reviewed the radiologist's reading. Discharge Plan Discharge Clinical Impression: Acute pain of right hip Patient Disposition: Left Against Medical Advice Instructions: Hip Pain (ED) Prescriptions: No Action ibuprofen 800 mg tablet 800 mg PO TID PRN (Reason: pain) Qty: 30 0RF cyclobenzaprine 10 mg tablet 10 mg PO TID PRN (Reason: muscle spasm) Qty: 20 0RF acetaminophen [Tylenol Extra Strength] 500 mg tablet 1,000 mg PO Q6H PRN ibuprofen 600 mg tablet 600 mg PO Q8H PRN Stand Alone Forms: Against Medical Advice Interventions: ED Discharge Assessment Last Done: 01/14/25 04:24 Discharge Date/Time: 01/14/25 04:25 Print Language: Slovenian
[2025-01-13 15:57] VITALS: BP 113/58; PULSE 92; RESP 18; TEMP 36.8; O2SAT 95; BMI 33.7
[2025-01-13 16:13] LABS: MANUAL DIFF FLAG NO
[2025-01-13 16:21] LABS: Hematocrit 38.9 % (37.0-47.0); Hemoglobin 12.8 g/dl (12.0-16.0); Imm Gran Abs Auto 0.01 X10*3/uL (0.00-0.03); Imm Gran Pct Auto 0.1 % (0.0-0.4); Lymphocytes Absolute Auto 3.1 X10*3/uL (1.2-4.9); Mean Corpuscular HGB Conc 32.9 g/dl (31.0-35.0); Mean Corpuscular Hemoglobin 26.0 pg (27.0-33.0); Mean Corpuscular Volume 78.9 fL (80.0-98.0); NRBC Abs Auto 0.000 X10*3/uL (0.0-0.012); NRBC Pct Auto 0.0 /100WBC (0.0-0.2); Platelet Count 310 X10*3/uL (160-400); Red Blood Count 4.93 X10*6/uL (4.20-5.50); White Blood Count 8.1 X10*3/uL (4.8-10.8)
[2025-01-13 16:29] LABS: Alanine Aminotransferase 29 U/L (0-31); Albumin Level 4.1 g/dL (3.5-5.0); Alkaline Phosphatase 142 U/L (39-117); Anion Gap 10 (12-20); Aspartate Amino Transferase 29 U/L (5-31); Blood Urea Nitrogen 13 mg/dL (9-16); Calcium 9.0 mg/dL (8.4-10.2); Carbon Dioxide 24 mmol/L (22-29); Chloride 114 mmol/L (96-108); Creatinine Clr Calc Pharmacy 84.7; Estimated Glomerular Filt Rate > 60; Lipase 37 U/L (8-78); Potassium 4.1 mmol/L (3.3-5.1); Sodium 144 mmol/L (135-145); Total Protein 6.9 g/dL (6.5-8.0)
[2025-01-13 16:34] LABS: COVID-19 Test Negative (Negative); IDNOW Serial# 55D5AD1C
[2025-01-13 16:35] LABS: IDNOW Serial# 58CA691E; Influenza B2 Negative (Negative)
--- OUTSIDE RECORDS SUMMARY | 2025-01-13 19:31 | XMS_ITS | Encounter Summary ---
Author Organization [employer] [email or web address]) Address [address] [place] [address] Care Team Providers Care Agitator Operator Name Role Phone Jose Elias Loza MD Primary Care Pr ovider Reason for Visit * Reason Onset Date Comments Transportation Need 01/04/2025 Encounter Details Date Type Department Care Team ([facility] st Contact Info) Description 01/04/2025 Telephone Pulmonology [facility] [address] [facility] [address] [place] [address] Fany Oviedo, ELISE [address] [place] [phone] Social History Tobacco Use Types Packs/Day Years Used Date Smoking Tobacco: Former Cigarettes Q uit: 06/26/2023 Passive Smoke Exposure: Past Smokeless Tobacco: Never Alcohol Use Standard Drinks/Week Comments Not Currently 0 (1 standard drink = 0.6 oz pur e alcohol) occ/holiday Housing Instability Answer Date Recorde d Are you worried that in the next 2 months you may not have stable housing? No 07/17/2024 Food Access & Nutrition Answer Date Rec orded Do you have access to a vari ety of food including fruits and vegetables? Yes 07/17/2024 Access to Healthcare Answer Date Record ed Within the last 3 months, brian walker many times did you visit the emergency department for your medical care? 0 07/17/2024 Health Literacy Answer Date Recorded How often do you need to hav e someone help you when you read instructions, pamphlets, or other written material from your doctor or pharmacy? Sometimes 07/17/2024 Caregiver: How often do you need to have someone help you when you read instructions, pamphlets, or other written material from your doctor or pharmacy? Not on file 07/17/2024 Financial Risk Answer Date Recorded How hard is it for you to pa y for the very basics like food, housing, medical care, and air conditioning / heating? Somewhat hard 07/17/2024 Transportation Answer Date Recorded Has the lack of transportati on kept you from meetings, work, or from getting things needed for daily living? No Has the lack of transportati on kept you from medical appointments or from getting medications? No 07/17/2024 Social Isolation Answer Date Recorded How often do you feel lonely or isolated from those around you? Sometimes 07/17/2024 Food Risk Answer Date Recorded Within the past 12 months we worried whether our food would run out before we got money to buy more. Sometimes true 025 Within the past 12 months th e food we bought just didn't last and we didn't have money to get more. Sometimes true 07/17/2024 Dependent Care Answer Date Recorded Do you need help finding or paying for care for your loved ones. For example, children counselor or elderly care for an older adult? No 07/17/2024 Education Answer Date Recorded Do you think completing more education or training, like finishing a GED, going to college, or learning a trade, would be helpful for you? No 07/17/2024 Employment and Income Answer Date Recor ded During the last four weeks, have you been actively looking for work? No 07/17/2024 Living Situation Answer Date Recorded What is your living situation? 0 07/17/2024 Interpersonal Safety Answer Date Record ed Physical Abuse 03/18/2024 Verbal Abuse 03/18/2024 Comments No Sex and Gender Information Value Date Recorded Sex Assigned at Female 03/18/2024 6:20 AM EST Legal Sex Female 4:36 AM EST Gender Identity Female 03/18/2024 6:20 AM EST Sexual Orientation Straight 03/18/2024 6: 20 AM EST documented as of this encounter Progress Notes * Kerri James MA - 01/09/2025 10:49 AM EDT Pls call pt and get information for PT-1 then send back to the pool. Thanks * Fany Oviedo NP - 01/04/2025 2:02 PM EDT Can you please set up PT1. Thanks * Alanis Moreno - 01/04/2025 1:04 PM EDT Patient called stating that she needs a PT1 form filled out for her insurance company to set up herrides for the upcoming appointment on 01/30. documented in this encounter Plan of Treatment Upcoming Encounters Date Type Department Care Team (Late st Contact Info) Description 01/24/2025 1:45 PM EDT Office Visit Bariatric Surgery - [place] [address] [facility] [address] [place] [phone] Julia Ricci MD [address] [place] [phone] 01/30/2025 2:45 PM EDT Office Visit Pulmonology - [place] [address] [facility] [address] [place] [phone] Fany Oviedo NP [address] [place] [phone] 02/03/2025 2:30 PM EDT Office Visit Adult Medicine [address] [phone] Jose Elias Loza MD [address] [place] [address] 02/27/2025 11:00 AM EST Consult [facility] [place] [address] [facility] [address] [place] [address] Roslyn Lorenzana MD [address] [place] [address] documented as of this encounter Visit Diagnoses Not on filedocumented in this encounter Additional Health Concerns Assessment Noted Time PHQ-9 Depression Total Score: 5 07/18/19 25 10:18 AM EDT documented as of this encounter Care Teams Agitator Operator Relationship Specialty Start Date End Date Jose Elias Loza MD [address] [place] [phone] PCP - General Internal Medicine 07/28/22 documented as of this encounter
--- OUTSIDE RECORDS SUMMARY | 2025-01-13 19:31 | XMS_ITS | Clinical Summary ---
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 on patient's age to complete this topic MMR Vaccines Aged Out No longer eligi ble based on patient's age to complete this topic Meningococcal ACWY Vaccine Aged Out N o longer eligible based on patient's age to complete this topic Meningococcal B Vaccine Aged Out No l onger eligible based on patient's age to complete this topic RSV Immunization Patients Under 20 months Aged Out No longer eligible based on patient's age to complete this topic Varicella Vaccines Aged Out No longer eligible based on patient's age to complete this topic Procedures Procedure Name Priority Date/Time Associated Diagnosis Comments CBC WITH AUTO DIFFERENTIAL Routine 12/20/2024 12:36 PM EDT Thrombocytosis Normocytic anemia COMPREHENSIVE METABOLIC PANEL Routine 12/20/2024 12:36 PM EDT Elevated alkaline phosphatase level CBC AND DIFFERENTIAL Routine 12/20/2024 12:36 PM EDT Thrombocytosis Normocytic anemia LIPASE Routine 12/20/2024 12:36 PM EDT Obesity, Class I, BMI 30-34.9 CBC WITH AUTO DIFFERENTIAL Routine 11/28/2024 12:53 PM EDT Thrombocytosis Normocytic anemia FERRITIN Routine 11/28/2024 12:53 PM EDT Normocytic anemia IRON AND TIBC Routine 11/28/2024 12:53 PM EDT Normocytic anemia VITAMIN B12 Routine 11/28/2024 12:53 PM EDT Normocytic anemia CBC AND DIFFERENTIAL Routine 11/28/2024 12:53 PM EDT Thrombocytosis Normocytic anemia FOLATE Routine 11/28/2024 12:53 PM EDT Normocytic anemia COMPREHENSIVE METABOLIC PANEL Routine 11/28/2024 12:53 PM EDT Elevated alkaline phosphatase level ALKALINE PHOSPHATASE, BONE SPECIFIC Routine 11/28/2024 12:53 PM EDT Elevated alkaline phosphatase level ALKALINE PHOSPHATASE, ISOENZYMES Routine 11/28/2024 12:53 PM EDT Elevated alkaline phosphatase level GAMMA GLUTAMYL TRANSFERASE Routine 11/28/2024 12:53 PM EDT Elevated alkaline phosphatase level US ABDOMEN LIMITED Routine 11/24/2024 9: 10 AM EDT Elevated alkaline phosphatase level CBC WITH AUTO DIFFERENTIAL Routine 11/21/2024 11:21 AM EDT Nausea and vomiting, unspecified vomiting type CBC AND DIFFERENTIAL Routine 11/21/2024 11:21 AM EDT Nausea and vomiting, unspecified vomiting type COMPREHENSIVE METABOLIC PANEL Routine 11/21/2024 11:21 AM EDT Nausea and vomiting, unspecified vomiting type AMYLASE Routine 11/21/2024 11:21 AM EDT Nausea and vomiting, unspecified vomiting type LIPASE Routine 11/21/2024 11:21 AM EDT Nausea and vomiting, unspecified vomiting type STRESS ECHOCARDIOGRAM EXERCISE Routine 11/01/2024 2:31 PM EDT Chest pain, unspecified type Tingling of left upper extremity ECG 12-LEAD Routine 10/27/2024 9:51 AM EDT Chest pain, unspecified type LIPID PANEL WITH REFLEX TO DIRECT LDL Routine 08/11/2024 12:57 PM EDT Hyperlipidemia, unspecified hyperlipidemia type BD BONE DENSITY DXA AXIAL SKELETON Routine 06/24/2024 11:17 AM EST History of closed fracture MG MAMMO DIGITAL SCREENING W LEMUEL BILAT Routine 03/09/2024 11:44 AM EST Encounter for screening mammogram for breast cancer HPV WITH REFLEX GENOTYPE Routine 03/01/2024 2:02 PM EST Postmenopausal bleeding DEPRESSION SCREENING Routine 07/23/2023 COLONOSCOPY Routine 10/22/2022 HEPATITIS C SCREENING Routine 08/01/2020 HIV SCREENING Routine 08/03/2014 from Last 3 Months or Most Recently Relevant to Health Maintenance Results * (ABNORMAL) CBC auto differential (12/20/2024 12:36 PM EDT) Only the most recent of3 resultswithin the time period is included. WBC 6.4 4.8 - 10.8 /[facility] LAB HEMETOLOGY METHOD 12/20/2024 2:31 PM [facility] RBC 4.60 3.80 - 4.80 M/mcL LAB HEMETOLOGY METHOD 12/20/2024 2:31 PM [facility] Hemoglobin 11.7 11.5 - 16.0 g/dL LAB HEMETOLOGY METHOD 12/20/2024 2:31 PM [facility] Hematocrit 38.0 35.0 - 47.0 % LAB HEMETOLOGY METHOD 12/20/2024 2:31 PM [facility] MCV 82.1 79.0 - 98.0 FL LAB HEMETOLOGY METHOD 12/20/2024 2:31 PM [facility] MCH 25.3(L) 27.0 - 32.0 pcg LAB HEMETOLOGY METHOD 12/20/2024 2:31 PM [facility] MCHC 30.8(L) 32.0 - 37.0 g/dL LAB HEMETOLOGY METHOD 12/20/2024 2:31 PM [facility] RDW 14.3 11.0 - 15.0 % LAB HEMETOLOGY METHOD 12/20/2024 2:31 PM [facility] Platelets 324 130 - 400 K/mcL LAB HEMETOLOGY METHOD 12/20/2024 2:31 PM [facility] MPV 9.9 7.0 - 11.0 FL LAB HEMETOLOGY METHOD 12/20/2024 2:31 PM [facility] NRBC 0.0 <1.0 % LAB HEMETOLOGY METHOD 12/20/2024 2:31 PM [facility] NRBC Absolute 0.00 <0.10 K/mcL LAB HEMETOLOGY METHOD 12/20/2024 2:31 PM [facility] Neutrophils Relative 41.4 % LAB HEMETOLOGY METHOD 12/20/2024 2:31 PM EDT [facility] Lymphocytes Relative 50.9 % LAB HEMETOLOGY METHOD 12/20/2024 2:31 PM [facility] Monocytes Relative 4.4 % LAB HEMETOLOGY METHOD 12/20/2024 2:31 PM [facility] Eosinophils Relative 2.4 % LAB HEMETOLOGY METHOD 12/20/2024 2:31 PM [facility] Basophils Relative 0.6 % LAB HEMETOLOGY METHOD 12/20/2024 2:31 PM [facility] Immature Granulocytes Relative 0.3 % LAB HEMETOLOGY METHOD 12/20/2024 2:31 PM [facility] Neutrophils Absolute 2.63 1.50 - 7.00 K/mcL LAB HEMETOLOGY METHOD 12/20/2024 2:31 PM [facility] Lymphocytes Absolute 3.24 1.00 - 5.00 K/mcL LAB HEMETOLOGY METHOD 12/20/2024 2:31 PM [facility] Monocytes Absolute 0.28 0.20 - 1.00 K/mcL LAB HEMETOLOGY METHOD 12/20/2024 2:31 PM [facility] Eosinophils Absolute 0.15 0.00 - 0.50 K/mcL LAB HEMETOLOGY METHOD 12/20/2024 2:31 PM [facility] Basophils Absolute 0.04 0.00 - 0.20 K/mcL LAB HEMETOLOGY METHOD 12/20/2024 2:31 PM [facility] Immature Granulocytes Absolute 0.02 0.00 - 0.03 K/mcL LAB HEMETOLOGY METHOD 12/20/2024 2:31 PM [facility] Blood Venous blood specimen / Unknown Venipuncture / Unknown 12/20/2024 12:36 PM EDT 12/20/2024 12:36 PM EDT Jose Elias Loza MD LAB BLOOD ORDERA BLES Final Result Performing Organization Address [facility]/ZIP Co de Phone Number [facility] [address] [place] [address], [place] [phone] * Lipase (12/20/2024 12:36 PM EDT) Only the most recent of2 resultswithin the time period is included. Pathologist [facility] Lipase 58 13 - 75 unit/L LAB CHEMISTRY METHOD 12/20/2024 5:37 PM EDT [facility] Blood Venous blood specimen / Unknown Venipuncture / Unknown 12/20/2024 12:36 PM EDT 12/20/2024 12:36 PM EDT Erlinda STEWART LAB BLOOD ORDERABLES Final R esult Performing Organization Address [facility]/ZIP Co de Phone Number [facility] [address] [place] [address], [place] [phone] * (ABNORMAL) Comprehensive metabolic panel (12/20/2024 12:36 PM EDT) Only the most recent of3 resultswithin the time period is included. Pathologist [facility] Sodium 141 133 - 145 mmol/L LAB CHEMISTRY METHOD 12/20/2024 5:37 PM EDT [facility] Potassium 4.0 3.5 - 5.5 mmol/L LAB CHEMISTRY METHOD 12/20/2024 5:37 PM EDT [facility] Chloride 109 96 - 110 mmol/L LAB CHEMISTRY METHOD 12/20/2024 5:37 PM EDT [facility] CO2 26 21 - 32 mmol/L LAB CHEMISTRY METHOD 12/20/2024 5:37 PM EDT [facility] Anion Gap 6 3 - 11 LAB CHEMISTRY METHOD 12/20/2024 5:37 PM [facility] Glucose 79 70 - 100 mg/dL LAB CHEMISTRY METHOD 12/20/2024 5:37 PM [facility] BUN 14 5 - 25 mg/dL LAB CHEMISTRY METHOD 12/20/2024 5:37 PM [facility] Creatinine 0.81 0.50 - 1.10 mg/dL LAB CHEMISTRY METHOD 12/20/2024 5:37 PM [facility] eGFR 85 >=60 mL/min/1. 73m2 LAB CHEMISTRY METHOD 12/20/2024 5:37 PM [facility] Comment:Calculation based on the Chronic Kidney Disease Epidemiology Collaboration (CKD-EPI) equation refit without adjustment for race. BUN/Creatinine Ratio 17.3 LAB CHEMISTRY METHOD 12/20/2024 5:37 PM [facility] Calcium 9.1 8.5 - 10.5 mg/dL LAB CHEMISTRY METHOD 12/20/2024 5:37 PM [facility] AST (SGOT) 19 10 - 42 unit/L LAB CHEMISTRY METHOD 12/20/2024 5:37 PM [facility] ALT (SGPT) 25 10 - 60 unit/L LAB CHEMISTRY METHOD 12/20/2024 5:37 PM [facility] Alkaline Phosphatase 130(H) 42 - 121 unit/L LAB CHEMISTRY METHOD 12/20/2024 5:37 PM [facility] Total Protein 6.5 6.0 - 8.0 g/dL LAB CHEMISTRY METHOD 12/20/2024 5:37 PM [facility] Albumin 3.8 3.2 - 5.0 g/dL LAB CHEMISTRY METHOD 12/20/2024 5:37 PM [facility] Total Bilirubin 0.4 0.0 - 1.4 mg/dL LAB CHEMISTRY METHOD 12/20/2024 5:37 PM [facility] Blood Venous blood specimen / Unknown Venipuncture / Unknown 12/20/2024 12:36 PM EDT 12/20/2024 12:36 PM EDT Jose Elias Loza MD LAB BLOOD ORDERA BLES Final Result [facility] [address] [place] [address], [place] [phone] * (ABNORMAL) Iron and TIBC (11/28/2024 12:53 PM EDT) Iron 49 40 - 150 mcg/dL LAB CHEMISTRY METHOD 11/28/2024 5:39 PM EDT [facility] TIBC 341 250 - 450 mcg/dL LAB CHEMISTRY METHOD 11/28/2024 5:39 PM EDT [facility] Iron Saturation 14(L) 15 - 50 % LAB CHEMISTRY METHOD 11/28/2024 5:39 PM EDT [facility] Blood Venous blood specimen / Unknown Venipuncture / Unknown 11/28/2024 12:53 PM EDT 11/28/2024 12:53 PM EDT Jose Elias Loza MD LAB BLOOD ORDERA BLES Final Result Performing Organization Address City/[facility]/ZIP Co de Phone Number [facility] [address] [place] [address], [place] [phone] * (ABNORMAL) Alkaline phosphatase, isoenzymes (11/28/2024 12:53 PM EDT) Alkaline Phosphatase 233(H) 37 - 153 U/L 12/11/2024 2:15 PM EDT [facility] Comment: Test Performed at: [facility] [address] [id number] Rhoda Santamaria MD, PhD, MICHAEL Alk Phos Isoenzyme Intestine 0(L) 1 - 24 % 12/11/2024 2:15 PM EDT [facility] Alk Phos Isoenzyme Bone 46 28 - 66 % 12/11/2024 2:15 PM EDT [facility] Alk Phos Isoenzyme Liver 54 25 - 69 % 12/11/2024 2:15 PM EDT [facility] Comment: Increased intestinal alkaline phosphatase can be seen in blood group O and B secretors and after fatty meals. Alk Phos Isoenzyme Placental 0 0 % 12/11/2024 2:15 PM EDT [facility] Comment: Test Performed at: [facility] [address] [id number] Rhoda Santamaria MD, PhD, MICHAEL Alk Phos Isoenzyme Macrohepatic TNP 12/11/2024 2:15 PM EDT [facility] Alkaline Phosphatase Isoenzymes Interpretation TNP 12/11/2024 2:15 PM EDT [facility] Blood Venous blood specimen / Unknown Venipuncture / Unknown 11/28/2024 12:53 PM EDT 11/28/2024 12:53 PM EDT Jose Elias Loza MD LAB BLOOD ORDERA BLES Final Result [facility] [address] [place] [address] * (ABNORMAL) Alkaline phosphatase, bone specific (11/28/2024 12:53 PM EDT) Alkaline Phosphatase Bone 38.9(H) 5.6 - 29.0 ug/L 12/02/2024 10:39 PM EDT [facility] Comment: Liver alkaline phosphatase can affect the measurement of bone specific alkaline phosphatase in this assay. Each 100 U/L of liver alkaline phosphatase contributes an additional 2.5 to 5.8 ug/L to the bone specific alkaline phosphatase result. Test performed at [facility], [address], [place], [place] [id number] Ángela Sullivan MD, PhD - [employer] Blood Venous blood specimen / Unknown Venipuncture / Unknown 11/28/2024 12:53 PM EDT 11/28/2024 12:53 PM EDT Jose Elias Loza MD LAB BLOOD ORDERA BLES Final Result [facility] [address] [place] [address] * (ABNORMAL) GGT (11/28/2024 12:53 PM EDT) GGT 117(H) 7 - 64 unit/L LAB CHEMISTRY METHOD 11/28/2024 5:09 PM EDT [facility] Blood Venous blood specimen / Unknown Venipuncture / Unknown 11/28/2024 12:53 PM EDT 11/28/2024 12:53 PM EDT Jose Elias Loza MD LAB BLOOD ORDERA BLES Final Result Performing Organization Address City/[facility]/ZIP Co de Phone Number [facility] [address] [place] [address], [place] [phone] * (ABNORMAL) Folate (11/28/2024 12:53 PM EDT) Folate >20.0(H) 2.8 - 17.0 ng/ml LAB CHEMISTRY METHOD 11/28/2024 5:39 PM EDT [facility] Blood Venous blood specimen / Unknown Venipuncture / Unknown 11/28/2024 12:53 PM EDT 11/28/2024 12:53 PM EDT Jose Elias Loza MD LAB BLOOD ORDERA BLES Final Result [facility] [address] [place] [address], [place] [phone] * Ferritin (11/28/2024 12:53 PM EDT) [facility] Ferritin 85 8 - 252 ng/mL LAB CHEMISTRY METHOD 11/28/2024 5:39 PM EDT [facility] Blood Venous blood specimen / Unknown Venipuncture / Unknown 11/28/2024 12:53 PM EDT 11/28/2024 12:53 PM EDT Jose Elias Loza MD LAB BLOOD ORDERA BLES Final Result Performing Organization Address [facility]/ZIP Co de Phone Number [facility] [address] [place] [address], [place] [phone] * (ABNORMAL) Vitamin B12 (11/28/2024 12:53 PM EDT) [facility] Vitamin B-12 1,556(H) 250 - 900 pcg/mL LAB CHEMISTRY METHOD 11/28/2024 5:39 PM EDT [facility] Blood Venous blood specimen / Unknown Venipuncture / Unknown 11/28/2024 12:53 PM EDT 11/28/2024 12:53 PM EDT Jose Elias Loza MD LAB BLOOD ORDERA BLES Final Result Performing Organization Address [facility]/ZIP Co de Phone Number [facility] [address] [place] [address], [place] [phone] * US Abdomen Limited (11/24/2024 9:10 AM EDT) Anatomical Region Laterality Modality Body Ultrasound 11/24/2024 11:3 0 AM EDT Impressions 11/24/2024 11:35 AM EDT Status post cholecystectomy. Otherwise, unremarkable exam. -------- FINAL REPORT -------- Dictated By: Nicole Villalba Dictated Date: 11/24/2024 11:30 ET Assigned Physician: Nicole Villalba Reviewed and Electronically Signed By: Nicole Villalba Signed Date: 11/24/2024 11:35 ET Workstation ID: [id number] Transcribed By: Self Edit Transcribed Date: 11/24/2024 11:30 ET Narrative 11/24/2024 11:35 AM EDT ABDOMINAL ULTRASOUND-LIMITED History: Elevated alkaline phosphatase. Comparison: CT chest 08/03/2023. FINDINGS: The gallbladder is surgically absent. The common bile duct is not dilated, measuring 5 mm. No ascites are seen. The pancreas is not well seen due to overlying bowel gas. The liver measures 13.7 cm in length and demonstrates normal echotexture. No focal lesions are seen in the liver and there is no evidence of intrahepatic ductal dilation. Normal hepatopedal flow is seen in the main portal vein. No evidence of hydronephrosis, mass, or calculus was seen in the right kidney. The right kidney measures 10.6 cm in greatest length. Procedure Note Nicole Villalba MD - 11/24/2024 ABDOMINAL ULTRASOUND-LIMITED History: Elevated alkaline phosphatase. Comparison: CT chest 08/03/2023. FINDINGS: The gallbladder is surgically absent. The common bile duct isnot dilated, measuring 5 mm. No ascites are seen. The pancreas is not well seen due to overlying bowel gas. The liver measures 13.7 cm in length and demonstrates normal echotexture.No focal lesions are seen in the liver and there is no evidence ofintrahepatic ductal dilation. Normal hepatopedal flow is seen in the mainportal vein. No evidence of hydronephrosis, mass, or calculus was seen in the rightkidney. The right kidney measures 10.6 cm in greatest length. IMPRESSION: Status post cholecystectomy. Otherwise, unremarkable exam. -------- FINAL REPORT -------- Dictated By: Nicole Villalba Dictated Date: 11/24/2024 11:30 ET Assigned Physician: Nicole Villalba Reviewed and Electronically Signed By: Nicole Villalba Signed Date: 11/24/2024 11:35 ET Workstation ID: [id number] Transcribed By: Self Edit Transcribed Date: 11/24/2024 11:30 ET Jose Elias Loza MD IMG US PROCEDURE S Final Result * Amylase (11/21/2024 11:21 AM EDT) Pathologist [facility] Amylase 37 25 - 115 unit/L LAB CHEMISTRY METHOD 11/21/2024 3:02 PM EDT [facility] Blood Venous blood specimen / Unknown Venipuncture / Unknown 11/21/2024 11:21 AM EDT 11/21/2024 11:21 AM EDT us Jose Elias Loza MD LAB BLOOD ORDERA BLES Final Result [facility] [address] [place] [address], [place] [phone] * (ABNORMAL) STRESS ECHOCARDIOGRAM EXERCISE (11/01/2024 2:31 PM EDT) Pathologist [facility] IVSD 1.0(A) 0.6 - 0.9 cm CV PACS STRESS LVIDD 4.3 3.8 - 5.2 cm CV PACS STRESS LVIDS 2.9 2.2 - 3.5 cm CV PACS STRESS LVPWD 0.9 0.6 - 0.9 cm CV PACS STRESS Relative Wall Thickness ratio 0.42 CV PACS STRESS FS 33 % CV PACS STRESS LV Mass 2D 133 g CV PACS STRESS BSA 2.16 m2 CV PACS STRESS Target HR 140 bpm CV PACS STRESS LVIDD Index 2.05 cm/m2 CV PACS STRESS LVIDS Index 1.38 cm/m2 CV PACS STRESS LV Mass Index 2D 63 44 - 88 g/m2 CV PACS STRESS Baseline HR 75 bpm CV PACS STRESS Baseline SBP 120 mmHg CV PACS STRESS Baseline DBP 90 mmHg CV PACS STRESS Peak HR 156 bpm CV PACS STRESS Peak SBP 152 mmHg CV PACS STRESS Peak DBP 80 mmHg CV PACS STRESS Estimated workload 7.1 METS CV PACS STRESS Rate Pressure Product 23,712.0 mmHg*bpm CV PACS STRESS Percent HR 95 % CV PACS STRESS Exercise/inject ion duration (min) 5 min CV PACS STRESS Exercise/inject ion duration (sec) 10 sec CV PACS STRESS Angina Index 0 CV PACS STRESS Maradiaga Treadmill Score 5 CV PACS STRESS Max HR Percent 94 % CV PA CS STRESS ST Depression (mm) 0 mm CV PACS STRESS Base ST Depresion (mm) 0 mm CV PACS STRESS Anatomical Region Laterality Modality Ultrasound Narrative 11/03/2024 3:08 PM EDT 1. Normal exercise stress echocardiogram. 2. Exercise protocol: The patient exercised for 5 minutes and 10 seconds. The patient achieved 95% of the maximum predicted heart rate. 3. Symptoms: No chest pain during the exercise protocol. 4. Functional capacity: Average functional capacity for age and gender. 5. Stress EKG: No ischemic ECG changes with exercise. 6. Maradiaga treadmill score: 5 (low risk). 7. Resting echocardiogram: Low-normal left ventricular systolic function with a left ventricular ejection fraction of 50-55%. No resting regional wall motion abnormalities. 8. Stress echocardiogram: No echocardiographic evidence of an infarct. No echocardiographic evidence of exercise-induced cardiac ischemia. Left Ventricle Left ventricle cavity size is normal. Wall thickness is normal. Systolic function is low normal with an ejection fraction of 50-55%. There are no regional LV wall motion abnormalities. Unable to assess diastolic function. Right Ventricle Right ventricle is grossly normal in size. Right ventricular function is grossly normal. Left Atrium Left atrium cavity size is grossly normal. Right Atrium Right atrium size is grossly normal. Mitral Valve The leaflets are mildly thickened. There is no regurgitation. The mitral valve is opening well on limited views Tricuspid Valve Tricuspid valve structure is normal. There is trace regurgitation. The tricuspid valve is opening well on limited views Aortic Valve The aortic valve is trileaflet. There is no regurgitation. The aortic valve is opening well on limited views Pulmonic Valve The pulmonic valve was not assessed. Ascending Aorta The aorta was not assessed. Pericardium Pericardium appears normal. There is no pericardial effusion. Study Details Overall the study quality was adequate. Stress Findings A Alessio protocol stress test was performed. Overall, the patient's exercise capacity was average. Total stress time was 5 min and 10 sec. The patient experienced no angina during the test. The test was stopped because the patient experienced fatigue and shortness of breath. The Maradiaga Treadmill Score is 5. The patient's hemodynamic response was adequate for diagnosis. Blood pressure demonstrated a normal response. Heart rate demonstrated a exaggerated response. The patient reported dyspnea and fatigue during the stress test. No chest pain. ECG 53-year-old female with a history of chronic noncardiac chest pain now with new symptoms of left upper extremity pain and numbness; rule out ischemia and evaluate for preoperative risk stratification. Cardiac risk factors include hyperlipidemia previous smoking history, obesity, and family history of coronary artery disease. No previous cardiac events; she did have a previous left heart cath in 2018 in a hospital in [place] showing normal coronaries. No beta-blockers, calcium channel blockers, or nitrates. Baseline ECG shows normal sinus rhythm. The ECG shows normal sinus rhythm. Baseline ECG shows no ST-segment deviation. There were no arrhythmias during stress. There is no ST segment changes during stress. There were no arrhythmias during recovery. The result of the stress ECG was negative for ischemia. Echo Post Stress Left ventricular cavity size decreased from baseline. Left ventricular systolic function improved from baseline. No new wall motion abnormalities appeared at stress. Nuclear Measurements The study is normal. Wall Scoring Baseline Score Index: 1.00 The left ventricular wall motion is normal. Wall Scoring Peak Stress Score Index: 1.00 The left ventricular wall motion is normal. Procedure Note Brigitte Moser NP / Elijah Lopez MD - 11/03/2024 1. Normal exercise stress echocardiogram. 2. Exercise protocol: The patient exercised for 5 minutes and 10 seconds.The patient achieved 95% of the maximum predicted heart rate. 3. Symptoms: No chest pain during the exercise protocol. 4. Functional capacity: Average functional capacity for age and gender. 5. Stress EKG: No ischemic ECG changes with exercise. 6. Maradiaga treadmill score: 5 (low risk). 7. Resting echocardiogram: Low-normal left ventricular systolic functionwith a left ventricular ejection fraction of 50-55%. No resting regionalwall motion abnormalities. 8. Stress echocardiogram: No echocardiographic evidence of an infarct.No echocardiographic evidence of exercise-induced cardiac ischemia. us Margarita Whitlock NP CV ECHO PROCEDURES Final Resul t * ECG 12 lead (10/27/2024 9:51 AM EDT) [facility] Signature Ventricular Rate ECG 69 BPM GEMUSE Atrial Rate 69 BPM GEMUSE P-R Interval 182 ms GEMUSE QRS Duration 90 ms GEMUSE Q-T Interval 412 ms GEMUSE QTc 441 ms GEMUSE P Wave [place] 18 degrees GEMUSE R [place] 22 degrees GEMUSE T [place] 25 degrees GEMUSE ECG Interpretation Normal sinus rhythm Normal ECG When compared with ECG of 23-FEB-2024 17:00, No significant change was found Confirmed by Alvina HUYNH JOHN ([id number]) on 11/01/2024 8:20:18 AM GEMUSE 10/27/2024 8:10 AM EDT 11/01/2024 8:20 AM EDT us Margarita Whitlock NP ECG ORDERABLES Edited Result - Final GEMUSE * (ABNORMAL) Lipid panel with reflex to direct LDL (08/11/2024 12:57 PM EDT) Cholesterol 200 0 - 200 mg/dL LAB CHEMISTRY METHOD 08/11/2024 3:45 PM EDT [facility] Triglycerides 184(H) 0 - 150 mg/dL LAB CHEMISTRY METHOD 08/11/2024 3:45 PM EDT [facility] HDL 47 >=40 mg/dL LAB CHEMISTRY METHOD 08/11/2024 3:45 PM EDT [facility] LDL Calculated 116(H) 0 - 100 mg/dL LAB CHEMISTRY METHOD 08/11/2024 3:45 PM EDT [facility] VLDL Cholesterol Davion 36.8 mg/dL LAB CHEMISTRY METHOD 08/11/2024 3:45 PM EDT [facility] Non HDL Chol. (LDL+VLDL) 153(H) <145 mg/dL LAB CHEMISTRY METHOD 08/11/2024 3:45 PM EDT [facility] Chol/HDL Ratio 4.3 0.0 - 4.4 LAB CHEMISTRY METHOD 08/11/2024 3:45 PM EDT [facility] Blood Venous blood specimen / Unknown Venipuncture / Unknown 08/11/2024 12:57 PM EDT 08/11/2024 2:37 PM EDT us Margarita STEWART LAB BLOOD ORDERABLES Final Re sult RAHAT MENJIVAR SD ([facility]) [facility] [address] [place] [address], * BD Bone Density DXA Axial Skeleton (06/24/2024 11:17 AM EST) Anatomical Region Laterality Modality Wrist, Hip, L-spine Bone Densito metry 06/24/2024 2:15 PM EST Impressions 06/24/2024 2:17 PM EST Normal bone mineral density by WHO criteria. The [facility] Department of Internal Medicine recommends using National Osteoporosis Foundation (NOF) guidelines in treatment decisions related to osteoporosis. NOF guidelines suggest considering treatment for postmenopausal women and men aged 50 or older presenting with the following: History of hip or vertebral fracture. T-score = -2.5 (DXA) at the femoral neck, total hip, or spine, after appropriate evaluation to exclude secondary causes. Low bone mass (T-score between -1.0 and -2.5 at the femoral neck or spine) AND a 10-year probability of a hip fracture = 3% OR a 10-year probability of a major osteoporosis-related fracture = 20% based on the [place]-adapted WHO algorithm Please note that all treatment decisions require clinical judgment and consideration of individual patient factors, including patient preferences, co-morbidities, previous drug use, risk factors not captured in the FRAX model (e.g., frailty, falls, vitamin D deficiency, increased bone turnover, interval significant decline in bone density) and possible under- or over-estimation of fracture risk by FRAX. Optional alternative screening schedule based on carolyn Stern., [facility] May 15, 2011 for patients with osteopenia (based on hip BMD T-score) is as follows: * advanced osteopenia (T scores -2.00 to -2.49), BMD testing every year * moderate osteopenia (T scores -1.50 to -1.99), BMD testing every 5 years mild osteopenia or normal BMD (T scores -1.50 and higher), BMD testing every 15 years -------- FINAL REPORT -------- Dictated By: Hattie Hodges Dictated Date: 06/24/2024 14:15 ET Assigned Physician: Hattie Hodges Reviewed and Electronically Signed By: Hattie Hodges Signed Date: 06/24/2024 14:17 ET Workstation ID: [id number] Transcribed By: Self Edit Transcribed Date: 06/24/2024 14:15 ET Narrative 06/24/2024 2:17 PM EST BONE DENSITY SCAN (DEXA) FINDINGS: Lumbar Spine: L1 and L2, L3 and L4 excluded due to spinal fusion hardware. T-score is 3.1. (SD relative to 20-29 y/o adult) Z-score is 4.2. (SD relative to age matched peers) This is considered normal by WHO criteria. Left Hip T-score is 0.0. Z-score is 0.7. This is considered normal by WHO criteria. Comparison: None. Lateral survey view of the thoracolumbar spine shows no significant compression deformities. Procedure Note Hattie Hodges MD - 06/24/2024 BONE DENSITY SCAN (DEXA) FINDINGS: Lumbar Spine: L1 and L2, L3 and L4 excluded due to spinal fusionhardware. T-score is 3.1. (SD relative to 20-29 y/o adult) Z-score is 4.2. (SD relative to age matched peers) This is considered normal by WHO criteria. Left Hip T-score is 0.0. Z-score is 0.7. This is considered normal by WHO criteria. Comparison: None. Lateral survey view of the thoracolumbar spine shows no significantcompression deformities. IMPRESSION: Normal bone mineral density by WHO criteria. The [facility] Department of Internal Medicine recommendsusing National Osteoporosis Foundation (NOF) guidelines in treatmentdecisions related to osteoporosis. NOF guidelines suggest consideringtreatment for postmenopausal women and men aged 50 or older presentingwith the following: History of hip or vertebral fracture. T-score = -2.5 (DXA) at the femoral neck, total hip, or spine, afterappropriate evaluation to exclude secondary causes. Low bone mass (T-score between -1.0 and -2.5 at the femoral neck or spine)AND a 10-year probability of a hip fracture = 3% OR a 10-year probabilityof a major osteoporosis-related fracture = 20% based on the [place]-adapted WHOalgorithm Please note that all treatment decisions require clinical judgment andconsideration of individual patient factors, including patientpreferences, co-morbidities, previous drug use, risk factors not capturedin the FRAX model (e.g., frailty, falls, vitamin D deficiency, increasedbone turnover, interval significant decline in bone density) and possibleunder- or over-estimation of fracture risk by FRAX. Optional alternative screening schedule based on [facility] Stern., [facility] for patients with osteopenia (based on hip BMD T-score)is as follows: * advanced osteopenia (T scores -2.00 to -2.49), BMD testing every year * moderate osteopenia (T scores -1.50 to -1.99), BMD testing every 5years mild osteopenia or normal BMD (T scores -1.50 and higher), BMD testingevery 15 years -------- FINAL REPORT -------- Dictated By: Hattie Hodges Dictated Date: 06/24/2024 14:15 ET Assigned Physician: Hattie Hodges Reviewed and Electronically Signed By: Hattie Hodges Signed Date: 06/24/2024 14:17 ET Workstation ID: [id number] Transcribed By: Self Edit Transcribed Date: 06/24/2024 14:15 ET Jose Elias Loza MD IM DXA PROCEDUR ES Final Result * MG Mammo Digital Screening w Lemuel bilat (03/09/2024 11:44 AM EST) Anatomical Region Laterality Modality Breast Bilateral Mammography 03/09/2024 11:5 6 AM EST Impressions 03/09/2024 11:59 AM EST Stable mammographic appearance of the breasts. No evidence of malignancy is seen. A negative mammogram in the presence of a clinically suspicious palpable abnormality does not preclude the possibility of malignancy or alter the indications for biopsy. BI-RADS: Category 1: Negative RECOMMENDATION(S): 1: Routine screening mammogram BILATERAL in 1 year. Mammo Location: [facility], [address] [place] [address], [id number], . -------- FINAL REPORT -------- Dictated By: Nicole Villalba Dictated Date: 03/09/2024 11:56 ET Assigned Physician: Nicole Villalba Reviewed and Electronically Signed By: Nicole Villalba Signed Date: 03/09/2024 11:59 ET Workstation ID: [id number] Transcribed By: Self Edit Transcribed Date: 03/09/2024 11:56 ET Narrative 03/09/2024 11:59 AM EST EXAM: MAMMO DIGITAL SCREENING W LEMUEL BILAT EXAM DATE: 03/09/2024 11:35 AM HISTORY: Breast cancer screen, avg risk, asymptomatic (Age => 40y) COMPARISON: Mammograms dating back to 02/28/2021 with most recent of 03/04/2023. TECHNIQUE: Bilateral digital breast tomosynthesis was performed in the CC and MLO projections. Computer aided detection with [employer] AI 3D 3.1 was employed. TISSUE DENSITY: b. There are scattered areas of fibroglandular density. FINDINGS: No suspicious masses, grouped microcalcifications, or areas of architectural distortion are seen. The skin and vascularity are unremarkable. Procedure Note Nicole Villalba MD - 03/09/2024 EXAM: MAMMO DIGITAL SCREENING W LEMUEL BILAT EXAM DATE: 03/09/2024 11:35 AM HISTORY: Breast cancer screen, avg risk, asymptomatic (Age => 40y) COMPARISON: Mammograms dating back to 02/28/2021 with most recent of03/04/2023. TECHNIQUE: Bilateral digital breast tomosynthesis was performed in the CCand MLO projections. Computer aided detection with [employer] AI 3D 3.1was employed. TISSUE DENSITY: b. There are scattered areas of fibroglandular density. FINDINGS: No suspicious masses, grouped microcalcifications, or areas ofarchitectural distortion are seen. The skin and vascularity areunremarkable. IMPRESSION: Stable mammographic appearance of the breasts. No evidence of malignancyis seen. A negative mammogram in the presence of a clinically suspicious palpableabnormality does not preclude the possibility of malignancy or alter theindications for biopsy. BI-RADS: Category 1: Negative RECOMMENDATION(S): 1: Routine screening mammogram BILATERAL in 1 year. Mammo Location: [facility], [address] [place] [address], [id number], . -------- FINAL REPORT -------- Dictated By: Nicole Villalba Dictated Date: 03/09/2024 11:56 ET Assigned Physician: Nicole Villalba Reviewed and Electronically Signed By: Nicole Villalba Signed Date: 03/09/2024 11:59 ET Workstation ID: [id number] Transcribed By: Self Edit Transcribed Date: 03/09/2024 11:56 ET Jose Elias Loza MD IMG BI PROCEDURE S Final Result * HPV with reflex genotype (03/01/2024 2:02 PM EST) [facility] HPV Negative Negative LAB MICROBIOLOGY METHOD 03/08/2024 1:57 PM EST [facility] Brushing/Spatula Cervix uteri structure / Unknown 03/01/2024 2:02 PM EST 03/07/2024 2:02 PM EST Susan STEWART LAB MOLECULAR DIAGNOSTICS OR DERABLES Final Result [facility] [address] [place] [address], * Depression Screening (07/23/2023) Pathologist [facility] Depression Screening abstracted Historical Provider HEALTH MAINTENANCE Final Result * Colonoscopy (10/22/2022) Pathologist [facility] Colonoscopy no interpretation , abstracted Anatomical Region Laterality Modality Other Historical Provider HEALTH MAINTENANCE Final Result * Hepatitis C Screening (08/01/2020) Hepatitis C Screening abstracted us Historical Provider HEALTH MAINTENANCE Final Result * HIV Screening (08/03/2014) HIV Screening abstracted us Historical Provider HEALTH MAINTENANCE Final Result from Last 3 Months or Most Recently Relevant to Health Maintenance Insurance [facility] Advance Directives * Full Code - Default (Latest Code Status on File) Date Activated Date Inactivated Comments 03/18/2024 7:15 AM 03/18/2024 2:58 PM This is or nivia is used when code status has not been discussed with the patient, or code status is otherwise unknown/unconfirmed To update the patient's code status, place a code status order. Do not modify or discontinue any currently active code status orders. Care Teams Pipeline Inspector Relationship Specialty Start Date End Date Jose Elias Loza MD [address] [place] [address] PCP - General Internal Medicine 07/28/22
--- OUTSIDE RECORDS SUMMARY | 2025-01-13 19:31 | XMS_ITS | Clinical Summary ---
Author Organization [facility] Address [address] [place] [address] Care Team Providers Care Plumber Maintenance Name Role Phone Isabella Weiner DO Primary Care P andrea Allergies No known active allergies Medications Medication Sig Dispensed Refills Start Date End Date Status albuterol (PROVENTIL HFA) 108 (90 BASE) MCG/ACT inhaler Proventil HFA 108 (90 Base) MCG/ACT Inhalation Aerosol Solution INHALE 1 TO 2 PUFFS EVERY 4 TO 6 HOURS NEEDED. Quantity: 1; Refills: 1 Active6.7 GM Inhaler 0 Active clonazePAM (KLONOPIN) 1 MG tablet KlonoPIN 1 MG Oral Tablet TAKE 1 TABLET 3 TIMES DAILY. Refills: 0 Active 0 Active atorvastatin (LIPITOR) tablet 20 mg Take 20 mg by mouth daily. 0 Active cefuroxime (CEFTIN) 500 MG tablet 1 po bid x 10 days 20 tablet 0 12/12/2016 Active HYDROcodone-acetami nophen (NORCO) 5-325 MG per tablet Take 1 tablet by mouth every 6 (six) hours as needed for pain. 16 tablet 0 12/12/2016 Active Social History Tobacco Use Types Packs/Day Years Used Date Smoking Tobacco: Every Day Cigarettes Alcohol Use Standard Drinks/Week Comments Yes 0 (1 standard drink = 0.6 oz pur e alcohol) socially Sex and Gender Information Value Date Recorded Sex Assigned at Not on file Gender Identity Not on file Sexual Orientation Not on file Job Start Date Occupation Industry Not on file Not on file Not on file Last Filed Vital Signs Vital Sign Reading Time Taken Comments Blood Pressure 130/80 12/12/2016 4:32 PM EDT Pulse 76 12/12/2016 4:32 PM EDT Temperature 36.8 C (98.3 F) 12/12/2016 4:32 PM EDT Respiratory Rate 16 12/12/2016 4:32 PM EDT Oxygen Saturation 98% 12/12/2016 4:32 PM EDT Inhaled Oxygen Concentration - - Weight 108 kg (238 lb) 12/12/2016 4:32 PM EDT Height 170.2 cm (5' 7 ) 12/12/2016 4:32 PM EDT Body Mass Index 37.28 12/12/2016 4:32 PM EDT Plan of Treatment Health Maintenance Due Date Last Done Comments Hepatitis B Vaccines (1 of 3 - 3-dose series) 1968 Hepatitis C Screening 1968 COVID-19 Vaccine (#1) 05/08/1969 Depression Screening 1980 Preventative Health Evaluation 1986 Cervical Cancer Screening (P ap Smear) 1989 Colon Cancer Screening (Colonoscopy) 2013 Breast Cancer Screening (Mammogram) 2018 Shingrix-Zoster Vaccine (1 of 2) 2018 Pneumococcal Vaccine (2 of 2 - PCV) 01/11/2020 01/10/2019 Influenza Vaccine (#1) 2024 01/10/2019 DTap / Tdap / Td (2 - Td or Tdap) 01/10/2029 019 RSV Ped < 20 months Aged Out No longe r eligible based on patient's age to complete this topic Care Teams Plumber Maintenance Relationship Specialty Start Date End Date Isabella Weiner DO PCP - General Airplane Tube Builder 08/05/19
--- OUTSIDE RECORDS SUMMARY | 2025-01-13 19:31 | XMS_ITS | Clinical Summary ---
Author Organization [facility] Address [address] [place] [address] Care Team Providers Care Public School Teacher Name Role Phone Pcp, No MD Primary Care Provider Unavailabl e Allergies Active Allergy Reactions Criticality Noted Date Comments Pinelamar 01/23/2014 Medications aspirin 81 mg EC tablet TAKE 1 TAB BY MOUTH DAILY FOR 180 DAYS. 07/15/2021 Active atorvastatin (LIPITOR) 20 mg tablet TK 1 T PO D HS 10/31/2022 Active clonazePAM (KlonoPIN) 1 mg tablet TK 1 T PO BID FOR ANXIETY 08/07/2022 Active omeprazole (PriLOSEC) 40 mg capsule Take 40 mg by mouth. 09/09/2022 Active Social History Tobacco Use Types Packs/Day Years Used Date Smoking Tobacco: Some Days Cigarettes Smokeless Tobacco: Never Tobacco Cessation:Ready to Q uit: Not Asked; Counseling Given: Not Answered Comments No Sex and Gender Information Value Date Recorded Sex Assigned at Not on file Legal Sex Female 3:28 AM EST Gender Identity Not on file Sexual Orientation Not on file Last Filed Vital Signs Vital Sign Reading Time Taken Comments Blood Pressure 112/74 01/19/2023 2:20 PM EDT Pulse 72 01/19/2023 2:20 PM EDT Temperature 36.4 C (97.5 F) 01/19/2023 2:20 PM EDT Respiratory Rate 16 01/19/2023 2:20 PM EDT Oxygen Saturation 97% 01/19/2023 2:20 PM EDT Inhaled Oxygen Concentration - - Weight 113 kg (249 lb) 01/19/2023 10:44 AM EDT Height 170.2 cm (5' 7 ) 01/19/2023 10:44 AM EDT Body Mass Index 39 01/19/2023 10:44 AM EDT Plan of Treatment Health Maintenance Due Date Last Done Comments Breast Cancer Screening 1968 CT Colonography 1968 FIT-DNA (Cologuard) 1968 FIT 1968 FOBT 1968 Flex Sigmoidoscopy - 5y 1968 HIV Screening 1968 Hepatitis C Screening 1986 Hepatitis B Vaccines (1 of 3 - 19+ 3-dose series) 11/06/1987 Pap Smear 1989 Cervical Cancer Screening 1998 HPV/Cotest 1998 Zoster Vaccines (1 of 2) 2018 Pneumococcal Vaccine, 50+ Ye ars (2 of 2 - PCV) 01/11/2020 01/10/2019 COVID-19 Vaccine (1 - 2023-2 5 season) 2024 Influenza Vaccine (#1) 2024 DTaP,Tdap,and Td Vaccines (2 - Td or Tdap) 01/10/2029 01/10/2019 Colonoscopy 10/22/2032 10/22/2022 Colorectal Cancer Screening 10/22/2032 HPV Vaccines Aged Out No longer eligi ble based on patient's age to complete this topic Hepatitis A Vaccines Aged Out No long er eligible based on patient's age to complete this topic MMR Vaccines Aged Out No longer eligi ble based on patient's age to complete this topic Meningococcal Vaccine Aged Out No dory leandro eligible based on patient's age to complete this topic Care Teams Public School Teacher Relationship Specialty Start Date End Date PcpAnila MD [address] [place] [address] PCP - General Internal Medicine 01/19/23
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
--- NOTE | 2025-01-13 19:37 | PC.NURSE ---
Patient brought to ED 16 tran from . Patient presented to ED for evaluation of worsening pain in RLQ radiating to lower back x5 days, nausea and 2 episodes of vomiting this morning. Patient s/p R THR 2 month ago. Patient reports Patient is alert and oriented x4, pleasant and cooperative. Patient is able to make her needs known. VSS. Patient currently resting in stretcher bed, blanket given to patient. Patient is awaiting to be seen by ED provider.
[2025-01-13 20:47] LABS: Appearance Urine Clear; Glucose Urine UA Negative (Negative); PH 5.5 (5.0-9.0); Specific Gravity - Urine >= 1.030 (1.005-1.025)
--- NOTE | 2025-01-13 20:48 | PC.NURSE ---
Patient was seen by ED provider. Patient medicated per MAR, awaiting CT of abdomen and pelvis.
--- NOTE | 2025-01-13 21:01 | PC.NURSE ---
CT can completed, patient returned to ED 16 tran.
--- NOTE | 2025-01-13 22:55 | PC.NURSE ---
unable to obtain IV after 2 attempts. primary RN notified.
[2025-01-13 23:14] VITALS: BP 125/80; PULSE 71; RESP 18; TEMP 35.7; O2SAT 98
[2025-01-14] MEDS: iohexoL 350 MG/ML 100 ML INFUS..BTL 85 ML IV (00:52)
--- NOTE | 2025-01-14 01:27 | PC.NURSE ---
pt very upset that it has been an hour and her results are not back for CT. explained to pt that many other pts are waiting for results but the time frame is out of our control. explained process multiple times in a respectful manner. provider also at bedside to explain the same. daughter and pt yelling at staff being very disrespecting and rude
--- NOTE | 2025-01-14 01:50 | PC.NURSE ---
pt refusing tylenol at this time. also refused other medications for pain that provider often earlier.
--- NOTE | 2025-01-14 02:35 | PC.NURSE ---
pt and daughter increasingly agitated, yelling at staff for wait time for CT results
[2025-01-14 03:19] VITALS: BP 137/82; PULSE 70; RESP 20; TEMP 36.8; O2SAT 98
--- NOTE | 2025-01-14 03:20 | PC.NURSE ---
Resumed care of patient at 0300, at this time she is currently waiting for CT results, pt is very upset about her current situation here within the ED, this RN spent time providing emotional support. This RN attempted to support the patients emotions and feelings while trying to explain the process at this time of how scans/labs work. Pt and daughter remain upset but are able to talk with this RN at a calmer state. Pt continues to not want to take any PO medications at this time for pain, reporting Im good on taking Tylenol this place is disgusting this RN advised that pt does have the choice to leave if she wishes but pt understands the importance of staying for results d/t potential complications of her hip surgery.
--- NOTE | 2025-01-14 04:16 | PC.NURSE ---
PA attempted to call radiology again at this time d/t getting the CT read back, at this time pt deciding to leave AMA at this time. IV removed, instructions on follow up given. Pt in agreement. Pt given compliance number at this time, charge nurse aware.
[2025-01-14 04:24] VITALS: BP 137/82; PULSE 70; RESP 20; TEMP 36.8; O2SAT 98
== END 2025-01-14 04:25 | disposition left against medical advice (07) ==
PROVIDERS: Physician Assistant; Emergency Provider Emergency Medicine Emergency Medical Services; PCP Nurse Practitioner Family
DX: M25.551 Pain in right hip (principal); R10.2 Pelvic and perineal pain; R60.0 Localized edema; Z79.899 Other long term (current) drug therapy; Z11.52 Encounter for screening for COVID-19
CPT/HCPCS: 36415; 73701; 74176; 80053; 81001; 83690; 85025; 87502; 87635; 93971; 96372; 99284; 99285; J1885; Q9967

== ENCOUNTER → 2025-01-13 15:58 | Outpatient (BNV) | payer OTHER, SELFPAY | PROVIDERS: PCP Nurse Practitioner Family; Visit Provider Radiology Diagnostic Radiology | DX: M25.551 Pain in right hip (principal); R22.2 Localized swelling, mass and lump, trunk; Z96.641 Presence of right artificial hip joint | CPT/HCPCS: 74176 ==

== ENCOUNTER → 2025-01-14 00:37 | Outpatient (BNV) | payer OTHER, SELFPAY | PROVIDERS: Emergency Provider Emergency Medicine Emergency Medical Services; PCP Nurse Practitioner Family; Visit Provider Radiology Diagnostic Radiology | DX: M25.551 Pain in right hip (principal) | CPT/HCPCS: 73701 ==